=== PATIENT | female | born 1990 | race Caucasian/White ===

== ENCOUNTER 2018-11-11 17:53 | Emergency (ER) | payer OTHER ==
[~2018-11-11] VITALS: Ht 165.1 cm; Wt 74.4 kg
[2018-11-11 18:33] VITALS: BP 134/83
--- NOTE | 2018-11-11 18:42 | NUR ---
SEEN AND EXAMINED BY DELBERT DEL RIO.
--- NOTE | 2018-11-11 18:46 | NUR ---
CALLED RT FOR BREATHING TREATMENT.
--- NOTE | 2018-11-11 18:51 | NUR ---
28 YO F CAME IN TO ER AAOX4 WITH COMPLAINT OF FLU LIKE SYMPTOMS, COUGHING WITH PHLEGM AND INTERMITTENT FEVER FOR THE PAST TWO WEEKS. NO DISTRESS NOTED, BREATHING EVEN AND UNLABORED. QUANG RANDOLPH SEEN PT AT BEDSIDE
[2018-11-11] MEDS: ALBUTEROL FS 2.5 MG/3 ML VIAL.NEB NEB ONE (18:58)
[2018-11-11] MEDS: IPRATROPIUM NEB FS 0.5 MG/2.5 ML AMPUL.NEB NEB ONE (18:58)
[2018-11-11] MEDS ORDERED: ALBUTEROL FS 2.5 MG/3 ML VIAL.NEB ONE (19:00)
[2018-11-11] MEDS ORDERED: IPRATROPIUM NEB FS 0.5 MG/2.5 ML AMPUL.NEB ONE (19:00)
--- NOTE | 2018-11-11 19:31 | NUR ---
REPORT GIVEN TO CRISSY SALVADOR FOR YAMILA.
[2018-11-11] MEDS ORDERED: IBUPROFEN 600 MG TABLET PO ONE (19:59)
[2018-11-11] MEDS: IBUPROFEN 600 MG TABLET PO ONE (20:01)
--- NOTE | 2018-11-11 20:35 | NUR ---
Patient discharged to home in stable condition. Written and verbal after care instructions given. Patient verbalizes understanding of instruction. PT AMBULATORY WITH STEADY GAIT.
== END 2018-11-11 20:47 | disposition home or self-care (01) ==
LOC: ER 17:53
DX: J06.9 Acute upper respiratory infection, unspecified (principal); J45.909 Unspecified asthma, uncomplicated; Z88.1 Allergy status to other antibiotic agents
CPT/HCPCS: 71045-TC